=== PATIENT | female | born 2000 | race African-American/Black ===

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

== ENCOUNTER 2025-01-28 18:35 | Emergency (ER) | payer OTHER ==
[2025-01-28] MEDS ORDERED: Acetaminophen 500 MG TAB ONE (19:40)
[2025-01-28] MEDS ORDERED: Metoclopramide HCl 10 MG (2 mL) VIAL ONE (20:30)
[2025-01-28] MEDS ORDERED: diphenhydrAMINE 50 MG/ML VIAL ONE (20:30)
[2025-01-28 21:20] LABS: Pregnancy Test - Urine (BHCG) Negative (Negative); Pregu Control Background? CLEAR/WHITE (CLR/WHITE); Pregu Control Bar Appear? YES (CONTROL BAR)
== END 2025-01-28 22:10 | disposition home or self-care (01) ==
LOC: ERS 18:35
DX: R51.9 Headache, unspecified (principal)
CPT/HCPCS: 81025; 87428; 96365; 96375; J1200; J2765; Q0162